=== PATIENT | male | born 1955 | race African-American/Black ===

== ENCOUNTER → 2018-08-20 | Outpatient (CLI) | payer OTHER ==
[2016-10-16 10:59] VITALS: BP 97/60
[~2018-08-20] MED LIST: BUDE10.2 IH; CETI10TA16 PO; DOXY100C2 PO; LISI-334 PO; PRED20TA PO; PROAIR HFA8.5 GM IH; RANI-275 PO; TIOT18CA IH; TRAZ-86 PO; blood pressure
--- NOTE | 2018-08-20 15:19 | RAD ---
Examination: CHEST PA LATERAL History: copd Comparison/Correlation: 10/15/2016 AP view of the chest Findings: PA and lateral views of the chest were obtained. Heart size and pulmonary vasculature are normal. No infiltrate or pleural effusion. Left lower lung field calcified granuloma is present. Borderline pulmonary hyperinflation is present Bony structures are unremarkable. Impression: No active disease. Electronically signed by: Ricardo Mantilla MD (08/20/2018 3:15 PM) [id number]
== END | disposition home or self-care (01) ==
LOC: RAD 12:22
PROVIDERS: ATTEND Internal Medicine Pulmonary Disease
DX: J44.9 Chronic obstructive pulmonary disease, unspecified (principal); J84.10 Pulmonary fibrosis, unspecified; I10 Essential (primary) hypertension; K21.9 Gastro-esophageal reflux disease without esophagitis; Z87.891 Personal history of nicotine dependence
CPT/HCPCS: 71046

== ENCOUNTER → 2018-09-17 | Outpatient (CLI) | payer OTHER ==
[2016-10-16 10:59] VITALS: BP 97/60
--- NOTE | 2018-09-17 15:55 | RAD ---
PQRS Compliance statement: One or more of the following individualized dose reduction techniques were utilized for this examination: 1. Automated exposure control. 2. Adjustment of the mA and/or kV according to patient size. 3. Use of iterative reconstruction technique. Indication:SMOKER, COPD, EMPHYSEMA, SOB.
PREVIOUS TECHNIQUE: CT low-dose chest without IV contrast with multiplanar reformats. COMPARISON: CT from 11/24/2011 FINDINGS: Heart is normal in size. No pericardial or pleural effusion. Calcified mediastinal and left hilar lymph nodes are seen. Clear neck base. No enlarged axillary or mediastinal lymph nodes. Evaluation of hilar lymphadenopathy is limited due to lack of IV contrast. Central airways are patent.. Mild diffuse centrilobular emphysema. Stable 3 mm nodule in the right lower lobe (series 3 image 40). Large calcified granuloma in the left lower lobe. Otherwise, lungs are clear. Multiple calcified granulomas in the spleen. Noncontrast appearance of the liver, adrenals, gallbladder, pancreas and kidneys within normal limits. No suspicious bony lesion. IMPRESSION: 1. Stable solitary right lower lobe nodule dating back to 2011. No new pulmonary nodules. 2. Mild emphysema. Lung-RADS category 2: Benign appearance or behavior. Continue annual low-dose CT screening. Electronically signed by: Robert Sauer DO (09/17/2018 3:52 PM) [facility]
== END | disposition home or self-care (01) ==
LOC: CT 13:11
PROVIDERS: ATTEND Internal Medicine Pulmonary Disease
DX: J43.2 Centrilobular emphysema (principal); J84.10 Pulmonary fibrosis, unspecified; D73.89 Other diseases of spleen; F17.200 Nicotine dependence, unspecified, uncomplicated; R91.1 Solitary pulmonary nodule
CPT/HCPCS: 71250

== ENCOUNTER 2018-10-14 10:36 | Emergency (ER) | payer OTHER ==
[~2018-10-14] VITALS: Ht 167.6 cm; Wt 70.3 kg
[2018-10-14] MEDS ORDERED: IV NORMAL SALINE 1000ML BAG 1,000 ML IV SCH (10:44)
--- NOTE | 2018-10-14 10:49 | PHYS DOC ---
Past Medical History Past Medical History: COPD, GERD, Hypertension Past Surgical History: No Surgical History Smoking: Cigarettes, 1 Pack Per Day Alcohol Use: Heavy Drug Use: Cocaine, Marijuana Adult General HPI HPI Patient is a 62-year-old male who presents to the emergency department via EMS. He states he has had a cough productive of whitish sputum for the past few days and some mild shortness of breath which acutely worsened this morning while eating breakfast. He has not had any fevers or chills. He denies any pain, including any pleuritic chest pain or other chest discomfort, other than the tightness of his breathing, similar to his prior COPD exacerbations. He denies any fevers or chills or myalgias, nasal congestion, abdominal pain, back pain, nausea or vomiting. He denies any extremity pain or swelling or recent immobilizations. He does admit to regular alcohol use, as well as cocaine use, stating use both last night. Faint odor of alcohol still detectable on the patient's breath. There are no alleviating or exacerbating factors to the patient's symptoms. The patient was given albuterol and Atrovent nebulizer treatments by EMS. Review of Systems Review of Systems Constitutional: Denies fever or chills [] Eyes: Denies change in visual acuity, redness, or eye pain [] HENT: Denies nasal congestion or sore throat [] Respiratory: Reports cough, and shortness of breath [] Cardiovascular: No additional information not addressed in HPI [] GI: Denies abdominal pain, nausea, vomiting, bloody stools or diarrhea [] : Denies dysuria or hematuria [] Musculoskeletal: Denies back pain or joint pain [] Integument: Denies rash or skin lesions [] Neurologic: Denies headache, focal weakness or sensory changes [] Endocrine: Denies polyuria or polydipsia [] All other systems were reviewed and found to be within normal limits, except as documented in this note. Current Medications Current Medications Current Medications Medications (Trade) Dose Ordered Sig/Nida Start Time Stop Time Status Last Admin Dose Admin Albuterol/ Ipratropium (Duoneb) 3 ml 1X ONCE 10/14/18 11:20 10/14/18 11:21 DC 10/14/18 10:56 3 ML Lorazepam (Ativan) 1 mg 1X ONCE 10/14/18 11:00 10/14/18 11:01 DC 10/14/18 10:56 1 MG Methylprednisolone Sodium Succinate (SOLU-Medrol 125MG VIAL) 125 mg 1X ONCE 10/14/18 11:00 10/14/18 11:01 DC 10/14/18 10:56 125 MG Sodium Chloride 1,000 ml @ 1,000 mls/hr Q1H 10/14/18 10:44 10/14/18 11:43 DC 10/14/18 10:57 1,000 MLS/HR Allergies Allergies Allergies Coded Allergies Type Severity Reaction Last Updated Verified No Known Drug Allergies 07/11/15 No Physical Exam Physical Exam PHYSICAL EXAM: CONSTITUTIONAL: Well developed, well nourished HEAD: normocephalic, atraumatic EENT: PERRL, EOMI. Conjunctivae normal color, sclerae non-icteric; moist mucous membranes. NECK: Supple, non-tender; no meningismus. LUNGS: There are globally diminished breath sounds, some mildly scattered, faint wheezes. There are no rhonchi or rales. HEART: Regular rate and rhythm, no murmur CHEST: No deformity; non-tender ABDOMEN: The abdomen is soft, and non-tender, no masses or bruits. EXTREM: Normal ROM; no deformity, no calf tenderness. Normal pulses palpable in all extremities. There is no pedal edema. SKIN: No rash; no diaphoresis NEURO: Alert; normal speech and cognition; CN's grossly intact; strength grossly intact without focal deficit. BACK: No CVA TTP. Current Patient Data Vital Signs Vital Signs Date Time Temp Pulse Resp B/P (MAP) Pulse Ox O2 Delivery O2 Flow Rate FiO2 10/14/18 11:04 98 Room Air 10/14/18 10:36 98.3 127 28 149/96 (113) 98.3 Lab Values Laboratory Tests Test 10/14/18 10:50 White Blood Count 11.0 x10^3/uL (4.0-11.0) Red Blood Count 5.36 x10^6/uL (4.30-5.70) Hemoglobin 15.3 g/dL (13.0-17.5) Hematocrit 45.1 % (39.0-53.0) Mean Corpuscular Volume 84 fL (79-100) Mean Corpuscular Hemoglobin 29 pg (25-35) Mean Corpuscular Hemoglobin Concent 34 g/dL (31-37) Red Cell Distribution Width 14.9 % (11.5-14.5) H Platelet Count 322 x10^3/uL (140-400) Neutrophils (%) (Auto) 61 % (31-73) Lymphocytes (%) (Auto) 28 % (24-48) Monocytes (%) (Auto) 7 % (0-9) Eosinophils (%) (Auto) 3 % (0-3) Basophils (%) (Auto) 1 % (0-3) Neutrophils # (Auto) 6.7 x10^3uL (1.8-7.7) Lymphocytes # (Auto) 3.0 x10^3/uL (1.0-4.8) Monocytes # (Auto) 0.7 x10^3/uL (0.0-1.1) Eosinophils # (Auto) 0.3 x10^3/uL (0.0-0.7) Basophils # (Auto) 0.2 x10^3/uL (0.0-0.2) Sodium Level 146 mmol/L (136-145) H Potassium Level 3.3 mmol/L (3.5-5.1) L Chloride Level 107 mmol/L (98-107) Carbon Dioxide Level 24 mmol/L (21-32) Anion Gap 15 (6-14) H Blood Urea Nitrogen 10 mg/dL (8-26) Creatinine 1.0 mg/dL (0.7-1.3) Estimated GFR (Cockcroft-Gault) 92.2 BUN/Creatinine Ratio 10 (6-20) Glucose Level 120 mg/dL (70-99) H Calcium Level 8.9 mg/dL (8.5-10.1) Total Bilirubin 0.3 mg/dL (0.2-1.0) Aspartate Amino Transferase (AST) 26 U/L (15-37) Alanine Aminotransferase (ALT) 26 U/L (16-63) Alkaline Phosphatase 81 U/L (46-116) Creatine Kinase 332 U/L (39-308) H Creatine Kinase MB (Mass) 4.0 ng/mL (0.0-3.6) H Creatine Kinase MB Relative Index 1.2 % (0-4) Troponin I Quantitative < 0.017 ng/mL (0.000-0.055) NO-Siv-G-Type Natriuretic Peptide 168 pg/mL (0-124) H Total Protein 7.8 g/dL (6.4-8.2) Albumin 3.9 g/dL (3.4-5.0) Albumin/Globulin Ratio 1.0 (1.0-1.7) Ethyl Alcohol Level 57 mg/dL (0-10) H Laboratory Tests 10/14/18 10:50 Laboratory Tests 10/14/18 10:50 EKG EKG [Normal sinus rhythm at a rate of 128 beats for minute, normal axis, normal intervals, nonspecific ST/T changes are present.] Radiology/Procedures Radiology/Procedures [PROCEDURE: PORTABLE CHEST 1V Single view chest 10/14/2018 CLINICAL INDICATION: Shortness of air. COMPARISON: Chest 08/20/2018. FINDINGS: Cardiac and mediastinal silhouettes are unremarkable. No pleural effusion, pneumothorax or focal consolidation. Tiny left midlung calcified granuloma. Old healed lateral right 7th rib fracture deformity. IMPRESSION: No acute cardiopulmonary abnormality.] Course & Med Decision Making Course & Med Decision Making Pertinent Labs and Imaging studies reviewed. (See chart for details) [11:55 AM: The patient's condition remains stable. He is feeling much better. His lungs have been reassessed and are now clear. He is in no respiratory distress. His oxygenation saturation is in the upper 90s on room air. His heart rate is still in the 110-120 range, which I suspect related to his alcohol and cocaine use. I discussed the importance of obtaining help and counseling with his substance abuse issues, and I encouraged him to follow up with his primary care provider, and we discussed the importance of close follow-up and return precautions. The patient admits he needs to get help with his substance abuse.] I am not highly suspicious that the patient has a pulmonary embolism, as I suspect his tachycardia is related to other factors, he is not hypoxic and her shortness of breath has improved after nebulizer treatments. Dragon Disclaimer Dragon Disclaimer This electronic medical record was generated, in whole or in part, using a voice recognition dictation system. Departure Departure Impression: Primary Impression: COPD (chronic obstructive pulmonary disease) Additional Impression: Polysubstance abuse Disposition: 01 HOME, SELF-CARE Condition: STABLE Referrals: KELSE[facility]ERS MEDICAL EDITOR (PCP) Patient Instructions: Alcohol Problems, Chronic Obstructive Pulmonary Disease Exacerbation, Cocaine Abuse-Brief, Smoking Cessation Scripts Albuterol Sulfate (PROAIR HFA INHALER) 8.5 Gm Hfa.aer.ad 1 PUFF INH PRN Q6HRS PRN for SHORTNESS OF BREATH, #1 INHALER 0 Refills Prov: HESHAM CURRIE MD 10/14/18 Prednisone (PREDNISONE) 20 Mg Tablet 40 MG PO DAILY for 5 Days, #10 TAB Prov: HESHAM CURRIE MD 10/14/18 Problem Qualifiers HESHAM CURRIE MD Oct 14, 2018 10:49
[2018-10-14] MEDS ORDERED: methylPREDNISolone SOD SUCC PF 125 MG/2 ML VIAL. IV ONE (11:00)
[2018-10-14] MEDS ORDERED: IPRATRPIUM/ALBUTEROL 0.5/2.5MG 3 ML NEBU. NEB ONE ×2 (11:00→11:20)
[2018-10-14 11:06] LABS: BASO # 0.2 x10^3/uL (0.0-0.2); BASO % 1 % (0-3); EOS # 0.3 x10^3/uL (0.0-0.7); EOS % 3 % (0-3); HEMATOCRIT 45.1 % (39.0-53.0); HEMOGLOBIN 15.3 g/dL (13.0-17.5); LYMPH % 28 % (24-48); MEAN CORPUSCULAR HEMOGLOBIN 29 pg (25-35); MEAN CORPUSCULAR HGB CONC 34 g/dL (31-37); MEAN CORPUSCULAR VOLUME 84 fL (79-100); MONO # 0.7 x10^3/uL (0.0-1.1); MONO % 7 % (0-9); NEUT # 6.7 x10^3uL (1.8-7.7); NEUT % 61 % (31-73); PLATELET COUNT 322 x10^3/uL (140-400); RED BLOOD COUNT 5.36 x10^6/uL (4.30-5.70); RED CELL DISTRIBUTION WIDTH 14.9 % (11.5-14.5)
[2018-10-14 11:15] LABS: CALCIUM 8.9 mg/dL (8.5-10.1); GFR 92.2; POTASSIUM 3.3 mmol/L (3.5-5.1)
[2018-10-14 11:21] LABS: ALBUMIN 3.9 g/dL (3.4-5.0); TOTAL BILIRUBIN 0.3 mg/dL (0.2-1.0); TOTAL PROTEIN 7.8 g/dL (6.4-8.2)
--- NOTE | 2018-10-14 11:37 | RAD ---
Single view chest 10/14/2018 CLINICAL INDICATION: Shortness of air. COMPARISON: Chest 08/20/2018. FINDINGS: Cardiac and mediastinal silhouettes are unremarkable. No pleural effusion, pneumothorax or focal consolidation. Tiny left midlung calcified granuloma. Old healed lateral right 7th rib fracture deformity. IMPRESSION: No acute cardiopulmonary abnormality. Electronically signed by: Marcello Ghotra MD (10/14/2018 11:33 AM) [facility]
[2018-10-14] MEDS ORDERED: PRED20TA PO (11:58)
[2018-10-14] MEDS ORDERED: PROAIR HFA8.5 GM INH (11:58)
[2018-10-14] MEDS ORDERED: IV NORMAL SALINE 1000ML BAG 1,000 ML IV ONE (12:00)
[2018-10-14 12:43] VITALS: BP 133/60
--- NOTE | 2018-10-14 17:54 | EKG ---
[facility] [address] [place] [address] Test Date: 2018-10-14 Test Time: 10:46:52 Pat Name: ANTONINA SCHERER Department: Room: Gender: M Credit Counselor: : 1955 Requested By: HESHAM CURRIE Order Number: [id number] Reading MD: Robbi Palma MD Measurements Intervals [place] Rate: 127 P: 81 FL: 94 QRS: 47 QRSD: 72 T: 68 QT: 318 QTc: 467 Interpretive Statements SINUS TACHYCARDIA NON-SPECIFIC ST/T CHANGES Electronically Signed On 10-15-2018 8:28:07 CLIENT RESOURCE SPECIALIST by Robbi Palma MD
== END 2018-10-14 12:51 | disposition home or self-care (01) ==
LOC: ER 10:36
DX: J44.9 Chronic obstructive pulmonary disease, unspecified (principal); F19.10 Other psychoactive substance abuse, uncomplicated; F14.20 Cocaine dependence, uncomplicated; K21.9 Gastro-esophageal reflux disease without esophagitis; I10 Essential (primary) hypertension; F17.210 Nicotine dependence, cigarettes, uncomplicated; F10.20 Alcohol dependence, uncomplicated; Y90.2 Blood alcohol level of 40-59 mg/100 ml
CPT/HCPCS: 36415; 71045; 80053; 82553; 83880; 84484; 85025; 93005; 94640; 96374; 96375; 99284; G0480; J2060; J2930; J7030; J7620; 99285-25

== ENCOUNTER 2020-01-19 03:01 | Emergency (ER) | payer OTHER ==
[~2020-01-19] VITALS: Ht 170.2 cm; Wt 70.0 kg
[~2020-01-19 03:01] MED LIST changes: +ACET325T9 PO; +ALBU2.5V8 IH; +ALBU2.5V8 INH; +ASPI-612 PO; +AZIT250T PO; +AZIT500T4 PO; +DOXY100T PO; +GABA-585 PO; +GUAI100L12 PO; +PRED50TA PO; -PROAIR HFA8.5 GM IH; +TRAZ-123 PO; -TRAZ-86 PO
[2020-01-19] MEDS ORDERED: IPRATRPIUM/ALBUTEROL 0.5/2.5MG 3 ML NEBU. NEB ONE (03:30)
[2020-01-19] MEDS ORDERED: methylPREDNISolone SOD SUCC PF 125 MG/2 ML VIAL. IV ONE (03:30)
[2020-01-19] MEDS ORDERED: MAGNESIUM SULFATE 2GM 50 ML IV ONE (03:30)
[2020-01-19] MEDS ORDERED: ALBUTEROL SULFATE 2.5 MG/3 ML NEBU. CONT NEB ONE (03:30)
--- NOTE | 2020-01-19 03:30 | RAD ---
PORTABLE CHEST 1V History: Dyspnea Comparison: December 11, 2019 Findings: No consolidation or pleural effusion. Normal heart size. No pneumothorax. Calcified left midlung pulmonary nodule, unchanged. Nodular opacity projecting over the right midlung measures 6 mm. Impression: 1. No acute cardiopulmonary process. 2. Nodular opacity projecting over the right midlung, may represent summation artifact or nodule. Recommend short-term radiographic follow-up with PA and lateral view the chest. Electronically signed by: Aron Simms DO (01/19/2020 3:27 AM) [id number]
[2020-01-19 03:41] LABS: BASO # 0.1 x10^3/uL (0.0-0.2); BASO % 1 % (0-3); EOS # 0.1 x10^3/uL (0.0-0.7); EOS % 1 % (0-3); HEMATOCRIT 42.9 % (39.0-53.0); HEMOGLOBIN 14.4 g/dL (13.0-17.5); LYMPH % 17 % (24-48); MEAN CORPUSCULAR HEMOGLOBIN 29 pg (25-35); MEAN CORPUSCULAR HGB CONC 34 g/dL (31-37); MEAN CORPUSCULAR VOLUME 86 fL (79-100); MONO % 9 % (0-9); NEUT # 8.6 x10^3/uL (1.8-7.7); NEUT % 73 % (31-73); PLATELET COUNT 305 x10^3/uL (140-400); RED BLOOD COUNT 4.97 x10^6/uL (4.30-5.70); RED CELL DISTRIBUTION WIDTH 15.9 % (11.5-14.5); WHITE BLOOD COUNT 11.7 x10^3/uL (4.0-11.0)
--- NOTE | 2020-01-19 04:10 | PHYS DOC ---
Past Medical History Past Medical History: COPD, GERD, Hypertension, Unknown Past Surgical History: No Surgical History, Other Additional Past Surgical Histo: pt refuses to answer quetions Smoking Status: Current Some Day Smoker Alcohol Use: Heavy Drug Use: Cocaine, Marijuana Adult General Chief Complaint Chief Complaint: DYSPNEA/RESPIRATOY DISTRESS HPI HPI Patient is a 64 year old male who presents with complaint of shortness of breath that started a few days ago but got worse yesterday. Patient had taken a total of 4 breathing treatments at home and was given additional breathing treatment while in route by EMS. Patient does indicate that he is feeling significantly improved. Patient denies any chest pain but does state that he feels tightness chest. He denies any nausea, vomiting or diaphoresis. EMS reports that patient's oxygen saturation was 76% on room air upon their arrival.[] Review of Systems Review of Systems Constitutional: Denies fever or chills [] Respiratory: Complains of cough and shortness of breath [] Cardiovascular: No additional information not addressed in HPI [] GI: Denies abdominal pain, nausea, vomiting, bloody stools or diarrhea [] Integument: Denies rash or skin lesions [] Neurologic: Denies headache, focal weakness or sensory changes [] All other systems were reviewed and found to be within normal limits, except as documented in this note. Current Medications Current Medications Current Medications Medications (Trade) Dose Ordered Sig/Nida Start Time Stop Time Status Last Admin Dose Admin Albuterol Sulfate (Ventolin Neb Soln) 7.5 mg 1X ONCE 01/19/20 03:30 01/19/20 03:14 DC Albuterol/ Ipratropium (Duoneb) 3 ml 1X ONCE 01/19/20 03:30 01/19/20 03:14 DC Magnesium Sulfate 50 ml @ 25 mls/hr 1X ONCE 01/19/20 03:30 01/19/20 03:14 DC Methylprednisolone Sodium Succinate (SOLU-Medrol 125MG VIAL) 125 mg 1X ONCE 01/19/20 03:30 01/19/20 03:31 DC 01/19/20 03:30 125 MG Allergies Allergies Allergies Coded Allergies Type Severity Reaction Last Updated Verified No Known Drug Allergies 07/11/15 No Physical Exam Physical Exam Constitutional: Well developed, well nourished, no acute distress, non-toxic appearance. [] HENT: Normocephalic, atraumatic, bilateral external ears normal, oropharynx moist, no oral exudates, nose normal. [] Eyes: PERRLA, EOMI, conjunctiva normal, no discharge. [] Neck: Normal range of motion, no tenderness, supple. [] Cardiovascular: Tachycardic rate with regular rhythm[] Lungs & Thorax: Bilateral breath sounds clear to auscultation [] Abdomen: Bowel sounds normal, soft, no tenderness. [] Skin: Warm, dry, no erythema, no rash. [] Extremities: No tenderness, no cyanosis, no clubbing, ROM intact. [] Neurologic: Alert and oriented X 3, no focal deficits noted. [] Current Patient Data Vital Signs Vital Signs Date Time Temp Pulse Resp B/P (MAP) Pulse Ox O2 Delivery O2 Flow Rate FiO2 01/19/20 03:30 114 18 159/87 (111) 100 Room Air 01/19/20 03:22 97.1 97.1 Lab Values Laboratory Tests Test 01/19/20 03:17 01/19/20 03:45 White Blood Count 11.7 x10^3/uL (4.0-11.0) H Red Blood Count 4.97 x10^6/uL (4.30-5.70) Hemoglobin 14.4 g/dL (13.0-17.5) Hematocrit 42.9 % (39.0-53.0) Mean Corpuscular Volume 86 fL (79-100) Mean Corpuscular Hemoglobin 29 pg (25-35) Mean Corpuscular Hemoglobin Concent 34 g/dL (31-37) Red Cell Distribution Width 15.9 % (11.5-14.5) H Platelet Count 305 x10^3/uL (140-400) Neutrophils (%) (Auto) 73 % (31-73) Lymphocytes (%) (Auto) 17 % (24-48) L Monocytes (%) (Auto) 9 % (0-9) Eosinophils (%) (Auto) 1 % (0-3) Basophils (%) (Auto) 1 % (0-3) Neutrophils # (Auto) 8.6 x10^3/uL (1.8-7.7) H Lymphocytes # (Auto) 2.0 x10^3/uL (1.0-4.8) Monocytes # (Auto) 1.0 x10^3/uL (0.0-1.1) Eosinophils # (Auto) 0.1 x10^3/uL (0.0-0.7) Basophils # (Auto) 0.1 x10^3/uL (0.0-0.2) Sodium Level 144 mmol/L (136-145) Potassium Level 3.8 mmol/L (3.5-5.1) Chloride Level 109 mmol/L (98-107) H Carbon Dioxide Level 26 mmol/L (21-32) Anion Gap 9 (6-14) Blood Urea Nitrogen 11 mg/dL (8-26) Creatinine 1.3 mg/dL (0.7-1.3) Estimated GFR (Cockcroft-Gault) 67.7 BUN/Creatinine Ratio 8 (6-20) Glucose Level 115 mg/dL (70-99) H Calcium Level 8.3 mg/dL (8.5-10.1) L Magnesium Level 1.6 mg/dL (1.8-2.4) L Total Bilirubin 0.3 mg/dL (0.2-1.0) Aspartate Amino Transferase (AST) 27 U/L (15-37) Alanine Aminotransferase (ALT) 23 U/L (16-63) Alkaline Phosphatase 94 U/L (46-116) Troponin I Quantitative < 0.017 ng/mL (0.000-0.055) IO-Ubm-Z-Type Natriuretic Peptide 265 pg/mL (0-124) H Total Protein 7.3 g/dL (6.4-8.2) Albumin 4.0 g/dL (3.4-5.0) Albumin/Globulin Ratio 1.2 (1.0-1.7) Influenza Type A Antigen Negative (NEGATIVE) Influenza Type B Antigen Negative (NEGATIVE) Laboratory Tests 01/19/20 03:17 Laboratory Tests 01/19/20 03:17 EKG EKG EKG demonstrates sinus tachycardia with a rate of 115.[] Radiology/Procedures Radiology/Procedures [] Impressions: PROCEDURE: PORTABLE CHEST 1V PORTABLE CHEST 1V History: Dyspnea Comparison: December 11, 2019 Findings: No consolidation or pleural effusion. Normal heart size. No pneumothorax. Calcified left midlung pulmonary nodule, unchanged. Nodular opacity projecting over the right midlung measures 6 mm. Impression: 1. No acute cardiopulmonary process. 2. Nodular opacity projecting over the right midlung, may represent summation artifact or nodule. Recommend short-term radiographic follow-up with PA and lateral view the chest. Electronically signed by: Aron Simms DO (01/19/2020 3:27 AM) [id number] Course & Med Decision Making Course & Med Decision Making Pertinent Labs and Imaging studies reviewed. (See chart for details) [] Dragon Disclaimer Dragon Disclaimer This electronic medical record was generated, in whole or in part, using a voice recognition dictation system. Departure Departure Impression: Primary Impression: COPD (chronic obstructive pulmonary disease) Disposition: HOME, SELF-CARE Condition: STABLE Referrals: NO PCP (PCP) Patient Instructions: Chronic Obstructive Pulmonary Disease Scripts Methylprednisolone (MEDROL) 4 Mg Tab.ds.pk 1 PKG PO UD, #1 PKG Prov: LAVERNE TRINH Jr., DO 01/19/20 Problem Qualifiers Primary Impression: COPD (chronic obstructive pulmonary disease) COPD type: unspecified COPD Qualified Codes: J44.9 - Chronic obstructive pulmonary disease, unspecified LAVERNE TRINH Jr., DO Jan 19, 2020 04:10
[2020-01-19 04:20] LABS: CALCIUM 8.3 mg/dL (8.5-10.1); CREATININE 1.3 mg/dL (0.7-1.3); GFR 67.7; POTASSIUM 3.8 mmol/L (3.5-5.1)
[2020-01-19 04:31] LABS: INFLUENZA A PATIENT NEGATIVE (NEGATIVE); INFLUENZA B PATIENT NEGATIVE (NEGATIVE)
[2020-01-19 04:31] LABS: ALBUMIN/GLOBULIN RATIO 1.2 (1.0-1.7); MAGNESIUM 1.6 mg/dL (1.8-2.4); TOTAL BILIRUBIN 0.3 mg/dL (0.2-1.0); TOTAL PROTEIN 7.3 g/dL (6.4-8.2)
--- NOTE | 2020-01-19 04:34 | EKG ---
[facility] [address] [place] [address] Test Date: 2020-01-19 Test Time: 03:30:34 Pat Name: ANTONINA SCHERER Department: Room: Gender: M Rn Mobile: : 1955 Requested By: LAVERNE TRINH Order Number: [id number] Reading MD: Measurements Intervals [place] Rate: 115 P: 72 [place]: 102 QRS: 31 QRSD: 66 T: 42 QT: 340 QTc: 472 Interpretive Statements SINUS TACHYCARDIA LEFT ATRIAL ABNORMALITY QRS(T) CONTOUR ABNORMALITY CONSIDER ANTEROLATERAL MYOCARDIAL DAMAGE ABNORMAL ECG RI6.01 No previous ECG available for comparison
[2020-01-19] MEDS ORDERED: METH4TAB2 PO (05:00)
[2020-01-19 05:50] VITALS: BP 143/83
== END 2020-01-19 06:14 | disposition home or self-care (01) ==
LOC: ER 03:01
DX: J44.1 Chronic obstructive pulmonary disease with (acute) exacerbation (principal); K21.9 Gastro-esophageal reflux disease without esophagitis; I10 Essential (primary) hypertension; F17.200 Nicotine dependence, unspecified, uncomplicated; F10.20 Alcohol dependence, uncomplicated; Y90.9 Presence of alcohol in blood, level not specified
CPT/HCPCS: 36415; 71045; 80053; 83735; 83880; 84484; 85025; 87804; 93005; 96374; 99285; J2930